=== PATIENT | male | born 1975 | race Caucasian/White ===

== ENCOUNTER 2020-12-19 15:18 | Emergency (ER) | payer SELFPAY ==
[2020-12-19] MEDS ORDERED: Silver Sulfadiazine 1% Crm 25 GM Tube TOP ONE (15:28)
[2020-12-19] MEDS ORDERED: Silver Sulfadiazine 1% Crm 50 GM Tube TOP ONE (15:30)
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
== END 2020-12-19 15:45 | disposition home or self-care (01) ==
LOC: LB.ED 15:18
DX: T23.191A Burn of first degree of multiple sites of right wrist and hand, initial encounter (principal); X19.XXXA Contact with other heat and hot substances, initial encounter
CPT/HCPCS: 16000; 99283; A9270